=== PATIENT | female | born 1930 | race Caucasian/White ===

== ENCOUNTER 2016-12-07 10:15 | Outpatient (CLI) | payer OTHER ==
[~2016-12-07 10:15] MED LIST: AMITRIPTYLINE H25 MG PO; AVAPRO150 MG PO; CEPHALEXIN500 MG PO; LESCOL XL80 MG PO; METFORMIN HCL500 MG PO; MULTIVITAMIN1 TAB PO; NEURONTIN300 MG PO; PERCOCET1 TA1 PO
--- NOTE | 2016-12-07 13:27 | DIAGNOSTIC IMAGING REPORT ---
PROCEDURE: CT THORAX ABD PELVIS W/CONT INDICATION: COLON CA TECHNIQUE: 100 ml of Isovue 300 injected intravenously and axial images were obtained of the entire thorax, abdomen, and pelvis with sagittal and coronal reformations. COMPARISON: Multiple prior studies including the most recent from 09/26/2016 FINDINGS: THORAX: Left IJ Mediport. Heavy coronary calcification and moderate aortic arch calcification. Stable mild cardiomegaly. Small hiatal hernia unchanged. No new adenopathy. Stable 5 mm right middle lobe lung nodule. Lungs are otherwise clear. No effusions. Stable T11 compression fracture. No new osseous lesions. ABDOMEN: The migrating fat containing soft tissue nodule is now present anteriorly in the right lower quadrant of the abdomen measuring 2.7 x 1.6 cm. Right pericolic gutter nodule is no longer present. The gallbladder is hydropic. Liver, adrenal glands, kidneys, pancreas, and spleen are stable. Heavy calcific atherosclerosis of the aorta. Shoddy retroperitoneal lymph nodes are unchanged. Stomach and bowel loops are normal. No new mesenteric mass. No free fluid or free air. PELVIS: Normal appendix, pelvic bowel loops, and colon. Moderate retained stool, stable. Surgically absent uterus and ovaries. Normal partially filled urinary bladder, pelvic vessels, and lymph nodes. No suspicious adenopathy, soft tissue mass, or free pelvic fluid. Degenerative changes in the spine. No suspicious osseous lesions. IMPRESSION: 1. Migrating mesenteric (or omental) soft tissue nodule demonstrating slight growth over multiple prior studies. 2. Otherwise stable chest, abdomen, and pelvis. All CT scans at this facility use dose modulation, iterative reconstruction, and/or weight-based dosing when appropriate to reduce radiation dose to as low as reasonably achievable.
== END 2016-12-07 23:00 ==
LOC: CT SRH 10:15
DX: C34.90 Malignant neoplasm of unspecified part of unspecified bronchus or lung (principal)

== ENCOUNTER 2017-03-17 09:30 | Outpatient (CLI) | payer OTHER ==
--- NOTE | 2017-03-17 12:22 | DIAGNOSTIC IMAGING REPORT ---
PROCEDURE: CT THORAX ABD PELVIS W/CONT INDICATION: COLON CA TECHNIQUE: 125 ml of Isovue 300 injected intravenously and axial images were obtained of the entire thorax, abdomen, and pelvis with sagittal and coronal reformations. COMPARISON: 12/07/2016 FINDINGS: THORAX: Left IJ Mediport. Atherosclerosis and heavy coronary artery atherosclerosis. Stable heart size (mild cardiomegaly) without new pericardial effusion or thickening. No new adenopathy. Small to moderate-sized hiatal hernia, stable. Stable 5 mm right middle lobe lung nodule. Otherwise mild bibasilar atelectatic changes. No new nodules or masses. No consolidations or pleural effusions. T11 compression fracture. No new osseous lesions. ABDOMEN: Migrating, fatty soft tissue nodule is now present in the infraumbilical region along the anterior abdominal wall just to the left of midline and has increased in size now measuring 3.6 x 1.9 cm. No other suspicious soft tissue masses. The liver, gallbladder, adrenal glands, spleen, pancreas, kidneys, retroperitoneal vasculature and ureters appear normal. (Duplicated right renal collecting system). Moderate to heavy aortic atherosclerotic calcification. No unusual calcifications. Tiny aortocaval lymph node is unchanged. No new adenopathy. The stomach and other bowel loops appear normal. No mesenteric inflammation. Intact anterior abdominal wall. No free fluid or free air. PELVIS: Normal appendix, pelvic bowel loops, and colon. Increased amount of retained stool, similar compared to prior studies. The uterus is surgically absent. Normal partially filled urinary bladder, pelvic vessels, and lymph nodes. No suspicious adenopathy, soft tissue mass, or free pelvic fluid. IMPRESSION: 1. Increased size of migrating soft tissue nodule within the peritoneal cavity. 2. No evidence of new metastatic disease in the chest, abdomen, or pelvis. All CT scans at this facility use dose modulation, iterative reconstruction, and/or weight-based dosing when appropriate to reduce radiation dose to as low as reasonably achievable.
== END 2017-03-17 23:00 ==
LOC: LAB SRH 09:30 → CT SRH 09:30
DX: C34.90 Malignant neoplasm of unspecified part of unspecified bronchus or lung (principal)
CPT/HCPCS: 90074; 90100; 95059